=== PATIENT | male | born 1965 ===

== ENCOUNTER 2021-07-01 04:48 | Day surgery (SDC) | payer BC, OTHER ==
[2021-06-29 09:33] VITALS: BMI 34.5
[2021-07-01 10:40] VITALS: TEMP 97.5
[2021-07-01 12:26] VITALS: BP 130/89; PULSE 73
== END 2021-07-01 11:25 | disposition home or self-care (01) ==
LOC: JASU-ENDO 04:48
PROVIDERS: ATTEND Internal Medicine Gastroenterology
PROC: 0DB98ZX Excision of Duodenum, Via Natural or Artificial Opening Endoscopic, Diagnostic (ICD-10-PCS; 2021-07-01)
PROC: 0DB68ZX Excision of Stomach, Via Natural or Artificial Opening Endoscopic, Diagnostic (ICD-10-PCS; 2021-07-01)
PROC: 0DJD8ZZ Inspection of Lower Intestinal Tract, Via Natural or Artificial Opening Endoscopic (ICD-10-PCS; principal; 2021-07-01 10:07)
DX: Z12.11 Encounter for screening for malignant neoplasm of colon (principal); K57.30 Diverticulosis of large intestine without perforation or abscess without bleeding; K29.80 Duodenitis without bleeding; K29.50 Unspecified chronic gastritis without bleeding; B96.81 Helicobacter pylori [H. pylori] as the cause of diseases classified elsewhere; Z80.0 Family history of malignant neoplasm of digestive organs
CPT/HCPCS: 43239; G0105; 88305-TC; 88342-TC